=== PATIENT | male | born 1995 | race Caucasian/White ===

== ENCOUNTER 2018-08-16 12:56 | Emergency (ER) | payer MEDICAID, OTHER ==
[~2018-08-16] VITALS: Ht 167.6 cm; Wt 79.0 kg
[2018-08-16 13:00] VITALS: BP 141/71; PULSE 68; RESP 16; Ht 167.6 cm; Wt 79.0 kg
[2018-08-16] MEDS ORDERED: LIDOCAINE 1% (MDV) 20 ML INJ SC ONE (13:30)
[2018-08-16] MEDS ORDERED: ACETAMINOPHEN 325 MG TAB PO ONE (13:30)
[2018-08-16] MEDS ORDERED: IBUP-1542 PO (13:38)
--- NOTE | 2018-08-16 13:40 | ERD ---
ER Documentation Chief Complaint Chief Complaint LEFT GREAT TOE INGROWN NAIL X 2 WEEKS HPI 21-year-old male presents with pain around an ingrown toenail on the left big toe. He has a history of ingrown toenails on this toenail and has had this treated several times. Denies any fevers, redness, discharge, history of trauma. ROS All systems reviewed and are negative except as per history of present illness. Medications Home Meds Active Scripts Ibuprofen* (Motrin*) 600 Mg Tab, 600 MG PO Q6, #15 TAB Prov:ALYSSA VELEZ MD 08/16/18 FmHx Family History: No diabetes, No coronary disease, No other Physical Exam Vitals Vital Signs Date Temp Pulse Resp B/P (MAP) Pulse Ox O2 O2 Flow FiO2 Time Delivery Rate 08/16/18 98.7 68 16 141/71 96 13:00 (94) Physical Exam Const: No acute distress Head: Atraumatic Eyes: Normal Conjunctiva ENT: Normal External Ears, Nose and Mouth. Neck: Full range of motion. No meningismus. Resp: Clear to auscultation bilaterally Cardio: Regular rate and rhythm, no murmurs Abd: Soft, non tender, non distended. Normal bowel sounds Skin: No petechiae or rashes Back: No midline or flank tenderness Ext: No cyanosis, or edema. Left big toe with bilateral ingrown toenail. No erythema, discharge, bleeding. No bony tenderness or deformities. Neur: Awake and alert Psych: Normal Mood and Affect Results 24 hrs Current Medications Medications Dose Sig/Jay Start Time Status Last (Trade) Ordered Route PRN Stop Time Admin Dose Reason Admin Lidocaine 20 ml ONCE ONCE 08/16/18 DC (Xylocaine SC 13:30 08/16/18 1% (Mdv) 20 13:31 ml) 650 mg ONCE ONCE 08/16/18 DC 08/16/18 Acetaminophen PO 13:30 08/16/18 13:25 (Tylenol 13:31 Tab) Procedures/MDM Patient presents with signs and symptoms of left big ingrown toenail without signs of osteomyelitis, history to suggest fracture, ischemia, additional complications. Procedure note-left big toe was prepped with Betadine. 3 cc of lidocaine was used to perform a digital block. Anesthesia was obtained. Given the patient has congenitally small toenails the entire toenail was avulsed. Patient tolerated procedure well and the wound was dressed. Will be discharged home with a prescription ibuprofen, instructions return precautions for fevers, redness, new worsening symptoms. Patient was counseled that definitive treatment may be obtained through a runner on. He was advised to see his primary doctor for referral otherwise return as directed. Departure Diagnosis: Primary Impression: Ingrown toenail of left foot Condition: Stable Patient Instructions: Ingrown Toenail, Excised Additional Instructions: Recheck for worsening redness, fevers, new or worsening symptoms. ALYSSA VELEZ MD Aug 16, 2018 13:40
== END 2018-08-16 14:32 | disposition home or self-care (01) ==
LOC: FTE 12:56
DX: L60.0 Ingrowing nail (principal)
CPT/HCPCS: 11750; Z7502; Z7610